=== PATIENT | female | born 1985 | race African-American/Black ===

== ENCOUNTER 2018-03-18 13:24 | Emergency (ER) | payer MEDICAID, OTHER ==
[~2018-03-18] VITALS: Ht 167.6 cm; Wt 74.0 kg
[~2018-03-18 13:24] MED LIST: CIPRO.3%O RIGHT EYE; HYDR-3533 PO
[2018-03-18 13:55] VITALS: BP 130/93; PULSE 78; RESP 18; TEMP 99.5; O2SAT 100
--- NOTE | 2018-03-18 14:01 | PD ---
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 Patient took a home 3 days ago and was positive. Her last menstrual cycle was 2 months ago. Patient has irregular menstrual cycle. She has been nauseous and vomiting as well. Patient is A3. She has a stillborn at 6 months of gestational age with her previous . Vital signs are stable. She has not had an OB yet. She also complains of some foul- smelling vaginal discharge. The pain has been going on for past couple days. The spotting started this morning. The spotting is really light as per the patient. The pain is more to the left side of her pelvis. Pain is nonradiating. PFSH Past Medical History Narrative Medical List of her past medical, surgical, social and family history is reviewed from the nursing note. Cardiovascular Problems: Yes (HEART MUMUR) Immunizations Current: No (PT DOES NOT KNOW) ?: LMP: last period was 2 months ago. + home test Miscarriage: 1 Social History Alcohol Use: No Tobacco Use: No Substance Use: No Allergies-Medications (Allergen,Severity, Reaction): Coded Allergies: No Known Allergies (Verified Adverse Reaction, Unknown, 03/18/18) Comments No known drug allergies. Reported Meds & Prescriptions Reported Meds & Active Scripts Active Macrobid (Nitrofurantoin Monoh/Nitrofur Macro) 100 Mg Cap 100 Mg PO BID 10 Days Ciprofloxacin HCl (Ciprofloxacin HCl (Ophth)) 0.3 % Rupali 2 Drop RIGHT EYE DIRECTED 14 Days Instill 2 drops into affected eye every 15 minutes for the first 6 hours, then 2 drops into the affected eye every 30 minutes for the remainder of the first day. On day 2, instill 2 drops into the affected eye hourly. On days 3-14, instill 2 drops into affected eye every 4 hours. Lortab 5 mg/325 mg (Hydrocodone/Acetaminophen 5 mg/325 mg) 1 Tab 1 Tab PO Q6H PRN Narrative Medication List of her home medications reviewed from the nursing note Review of Systems Except as stated in HPI: all other systems reviewed are Neg Genitourinary: Positive: Pelvic Pain, Vaginal Bleeding Physical Exam Narrative GENERAL: Awake, alert, mild distress SKIN: Focused skin assessment warm/dry. HEAD: Atraumatic. Normocephalic. EYES: Pupils equal and round. No scleral icterus. No injection or drainage. ENT: No nasal bleeding or discharge. Mucous membranes pink and moist. NECK: Trachea midline. No JVD. CARDIOVASCULAR: Regular rate and rhythm. No murmur appreciated. RESPIRATORY: No accessory muscle use. Clear to auscultation. Breath sounds equal bilaterally. GASTROINTESTINAL: Abdomen soft, non-tender, nondistended. Hepatic and splenic margins not palpable. MUSCULOSKELETAL: No obvious deformities. No clubbing. No cyanosis. No edema. NEUROLOGICAL: Awake and alert. No obvious cranial nerve deficits. Motor grossly within normal limits. Normal speech. PSYCHIATRIC: Appropriate mood and affect; insight and judgment normal. Data Data Last Documented VS Orders Orders Beta Hcg (Quant/Titer) (03/18/18 14:09) Complete Blood Count With Diff (03/18/18 14:09) Basic Metabolic Panel (Bmp) (03/18/18 14:09) Urinalysis - C+S If Indicated (03/18/18 14:09) Sodium Chlor 0.9% 1000 Ml Inj (Ns 1000 M (03/18/18 14:09) Ed Urine Pregnancytest Poc (03/18/18 14:09) Metoclopramide Inj (Reglan Inj) (03/18/18 14:15) Type And Screen (03/18/18 14:11) Urine Culture (03/18/18 14:20) Nitrofurantoin Monohyd Macrocr (Macrobid (03/18/18 15:15) Sodium Chlor 0.9% 1000 Ml Inj (Ns 1000 M (03/18/18 15:30) Potassium Chloride (Kcl) (03/18/18 15:45) Ed Poc Ultrasound (03/18/18 ) Gc And Chlamydia Pcr (03/18/18 16:38) Wet Prep Profile (03/18/18 16:38) Ed Discharge Order (03/18/18 18:40) Labs Laboratory Tests Test 03/18/18 14:20 03/18/18 14:23 03/18/18 16:54 Urine Color YELLOW Urine Turbidity HAZY Urine pH 6.0 Urine Specific [place] 1.034 Urine Protein 30 mg/dL Urine Glucose (UA) NEG mg/dL Urine Ketones 40 mg/dL Urine Occult Blood NEG Urine Nitrite NEG Urine Bilirubin NEG Urine Urobilinogen 2.0 MG/DL Urine Leukocyte Esterase LARGE Urine RBC 6 /hpf Urine WBC 32 /hpf Urine Squamous Epithelial Cells 1 /hpf Urine Bacteria RARE /hpf Urine Mucus MANY /lpf Microscopic Urinalysis Comment CULTURE INDICATED White Blood Count 13.5 TH/MM3 Red Blood Count 4.35 MIL/MM3 Hemoglobin 12.4 GM/DL Hematocrit 34.4 % Mean Corpuscular Volume 79.1 FL Mean Corpuscular Hemoglobin 28.6 PG Mean Corpuscular Hemoglobin Concent 36.2 % Red Cell Distribution Width 18.0 % Platelet Count 208 TH/MM3 Mean Platelet Volume 8.9 FL Neutrophils (%) (Auto) 71.0 % Lymphocytes (%) (Auto) 19.0 % Monocytes (%) (Auto) 6.7 % Eosinophils (%) (Auto) 3.0 % Basophils (%) (Auto) 0.3 % Neutrophils # (Auto) 9.6 TH/MM3 Lymphocytes # (Auto) 2.6 TH/MM3 Monocytes # (Auto) 0.9 TH/MM3 Eosinophils # (Auto) 0.4 TH/MM3 Basophils # (Auto) 0.0 TH/MM3 CBC Comment DIFF FINAL Differential Comment Blood Urea Nitrogen 6 MG/DL Creatinine 0.78 MG/DL Random Glucose 75 MG/DL Calcium Level 8.9 MG/DL Sodium Level 136 MEQ/L Potassium Level 3.1 MEQ/L Chloride Level 101 MEQ/L Carbon Dioxide Level 24.7 MEQ/L Anion Gap 10 MEQ/L Estimat Glomerular Filtration Rate 103 ML/MIN Human Chorionic Gonadotropin, Quant 10469 MIU/ML Clue Cells (Wet Prep) NONE SEEN Vaginal Trichomonas (Wet Prep) NONE SEEN Vaginal Yeast (Wet Prep) NONE SEEN Chlamydia trachomatis DNA (PCR) NOT DETECTED Neisseria gonorrhoeae DNA (PCR) NOT DETECTED MDM Medical Decision Making Medical Screen Exam Complete: Yes Emergency Medical Condition: Yes Medical Record Reviewed: Yes Differential Diagnosis Ectopic , threatened, STD, UTI Narrative Course 5:23 PM blood test results are back and within acceptable limit. Her UA was positive for UTI. Patient was given IV fluid bolus and nausea medication. Patient had a bedside ultrasound done by me. Please refer to my procedure note. I had a pelvic done as well and currently waiting for wet mount and GC chlamydia. Case has been signed over to the oncoming ER physician. Procedures Procedure Narrative Emergency Department Pelvic ultrasound was performed with patient consent. The curvilinear probe was used in the transverse and sagittal views within the suprapubic region revealing single, live intrauterine . heart rate was 141 bpm. See this measures 7 weeks and 1 day by crown-rump length. EKG Prior to Arrival: No Diagnosis Primary Impression: First trimester Additional Impressions: Threatened UTI (urinary tract infection) Qualified Codes: N39.0 - Urinary tract infection, site not specified Dehydration Hypokalemia Scripts Nitrofurantoin Monohydrate Macrocrystals (Macrobid) 100 Mg Cap 100 MG PO BID for Infection for 10 Days, #20 CAP 0 Refills Prov: Eunice Pemberton DO 03/18/18 Disposition: 01 DISCHARGE HOME Condition: Stable Maria Eugenia Flores MD Mar 18, 2018 14:01
[2018-03-18] MEDS ORDERED: SODIUM CHLOR 0.9% 1000 ML INJ 1,000 ML IV ONE ×2 (14:09→15:30)
[2018-03-18] MEDS ORDERED: METOCLOPRAMIDE HCL 10 MG/2 ML VIAL IV PUSH ONE (14:15)
[2018-03-18 15:00] LABS: AUTOMATED NEUTROPHIL # 9.6 TH/MM3 (1.8-7.7); BASOPHIL % 0.3 % (0.0-2.0); EOSINOPHIL # 0.4 TH/MM3 (0-0.4); HEMATOCRIT 34.4 % (35.0-46.0); HEMOGLOBIN 12.4 GM/DL (11.6-15.3); LYMPHOCYTE # 2.6 TH/MM3 (1.0-4.8); MEAN CELL VOLUME 79.1 FL (80.0-100.0); MEAN CORPUSCULAR HEMOGLOBIN 28.6 PG (27.0-34.0); MEAN PLATELET VOLUME 8.9 FL (7.0-11.0); MONO % 6.7 % (0.0-8.0); MONOCYTE # 0.9 TH/MM3 (0-0.9); PLATELET COUNT 208 TH/MM3 (150-450); RED BLOOD COUNT 4.35 MIL/MM3 (4.00-5.30); WHITE BLOOD COUNT 13.5 TH/MM3 (4.0-11.0)
[2018-03-18 15:01] LABS: MEAN CORPUSCULAR HGB CONC 36.2 % (32.0-36.0)
[2018-03-18 15:10] LABS: BACTERIA, URINE RARE /hpf; BILIRUBIN, URINE NEG (NEG); BLOOD, URINE NEG (NEG); GLUCOSE,URINE NEG (NEG); KETONE, URINE 40 mg/dL (NEG); MUCUS URINE MANY /lpf (OCC); NITRITE,URINE NEG (NEG); SQUAMOUS EPITHELIAL CELL URINE 1 /hpf (0-5); URINE COLOR YELLOW (YELLW/STRAW); URINE LEUKOCYTE ESTERASE LARGE (NEG)
[2018-03-18] MEDS ORDERED: NITROFURANTOIN MONOHYD MACROCR 100 MG CAP PO ONE (15:15)
[2018-03-18 15:26] LABS: BICARBONATE 24.7 MEQ/L (21.0-32.0); CALCIUM 8.9 MG/DL (8.5-10.1); CREATININE 0.78 MG/DL (0.50-1.00)
[2018-03-18] MEDS ORDERED: POTASSIUM CHLORIDE 20 MEQ CONTROLLED RELEASE TAB PO ONE (15:45)
[2018-03-18 18:32] VITALS: BP 114/70; PULSE 74; RESP 14; O2SAT 99
[2018-03-18] MEDS ORDERED: MACR100C2 PO (18:34)
--- NOTE | 2018-03-18 18:40 | PD ---
Physical Exam Date Seen by Provider: Mar 18, 2018 Data Data Last Documented VS Vital Signs Date Time Temp Pulse Resp B/P (MAP) Pulse Ox O2 Delivery O2 Flow Rate FiO2 03/18/18 18:32 74 14 114/70 (85) 99 Room Air 03/18/18 13:55 99.5 Orders Orders Beta Hcg (Quant/Titer) (03/18/18 14:09) Complete Blood Count With Diff (03/18/18 14:09) Basic Metabolic Panel (Bmp) (03/18/18 14:09) Urinalysis - C+S If Indicated (03/18/18 14:09) Sodium Chlor 0.9% 1000 Ml Inj (Ns 1000 M (03/18/18 14:09) Ed Urine Pregnancytest Poc (03/18/18 14:09) Metoclopramide Inj (Reglan Inj) (03/18/18 14:15) Type And Screen (03/18/18 14:11) Urine Culture (03/18/18 14:20) Nitrofurantoin Monohyd Macrocr (Macrobid (03/18/18 15:15) Sodium Chlor 0.9% 1000 Ml Inj (Ns 1000 M (03/18/18 15:30) Potassium Chloride (Kcl) (03/18/18 15:45) Ed Poc Ultrasound (03/18/18 ) Gc And Chlamydia Pcr (03/18/18 16:38) Wet Prep Profile (03/18/18 16:38) Labs Laboratory Tests Test 03/18/18 14:20 03/18/18 14:23 03/18/18 16:54 Urine Color YELLOW Urine Turbidity HAZY Urine pH 6.0 Urine Specific [place] 1.034 Urine Protein 30 mg/dL Urine Glucose (UA) NEG mg/dL Urine Ketones 40 mg/dL Urine Occult Blood NEG Urine Nitrite NEG Urine Bilirubin NEG Urine Urobilinogen 2.0 MG/DL Urine Leukocyte Esterase LARGE Urine RBC 6 /hpf Urine WBC 32 /hpf Urine Squamous Epithelial Cells 1 /hpf Urine Bacteria RARE /hpf Urine Mucus MANY /lpf Microscopic Urinalysis Comment CULTURE INDICATED White Blood Count 13.5 TH/MM3 Red Blood Count 4.35 MIL/MM3 Hemoglobin 12.4 GM/DL Hematocrit 34.4 % Mean Corpuscular Volume 79.1 FL Mean Corpuscular Hemoglobin 28.6 PG Mean Corpuscular Hemoglobin Concent 36.2 % Red Cell Distribution Width 18.0 % Platelet Count 208 TH/MM3 Mean Platelet Volume 8.9 FL Neutrophils (%) (Auto) 71.0 % Lymphocytes (%) (Auto) 19.0 % Monocytes (%) (Auto) 6.7 % Eosinophils (%) (Auto) 3.0 % Basophils (%) (Auto) 0.3 % Neutrophils # (Auto) 9.6 TH/MM3 Lymphocytes # (Auto) 2.6 TH/MM3 Monocytes # (Auto) 0.9 TH/MM3 Eosinophils # (Auto) 0.4 TH/MM3 Basophils # (Auto) 0.0 TH/MM3 CBC Comment DIFF FINAL Differential Comment Blood Urea Nitrogen 6 MG/DL Creatinine 0.78 MG/DL Random Glucose 75 MG/DL Calcium Level 8.9 MG/DL Sodium Level 136 MEQ/L Potassium Level 3.1 MEQ/L Chloride Level 101 MEQ/L Carbon Dioxide Level 24.7 MEQ/L Anion Gap 10 MEQ/L Estimat Glomerular Filtration Rate 103 ML/MIN Human Chorionic Gonadotropin, Quant 38753 MIU/ML Clue Cells (Wet Prep) NONE SEEN Vaginal Trichomonas (Wet Prep) NONE SEEN Vaginal Yeast (Wet Prep) NONE SEEN MDM Medical Record Reviewed: Yes Supervised Visit with MARCOS: No Interpretation(s) Vital Signs Date Time Temp Pulse Resp B/P (MAP) Pulse Ox O2 Delivery O2 Flow Rate FiO2 03/18/18 18:32 74 14 114/70 (85) 99 Room Air 03/18/18 13:55 99.5 78 18 130/93 (105) 100 Laboratory Tests Test 03/18/18 14:20 03/18/18 14:23 03/18/18 16:54 Urine Color YELLOW (YELLW/STRAW) Urine Turbidity HAZY (CLEAR) Urine pH 6.0 (5.0-8.5) Urine Specific [place] 1.034 (1.002-1.035) Urine Protein 30 mg/dL (NEG-TRACE) Urine Glucose (UA) NEG mg/dL (NEG) Urine Ketones 40 mg/dL (NEG) Urine Occult Blood NEG (NEG) Urine Nitrite NEG (NEG) Urine Bilirubin NEG (NEG) Urine Urobilinogen 2.0 MG/DL (LESS THAN Urine Leukocyte Esterase LARGE (NEG) Urine RBC 6 /hpf (0-3) Urine WBC 32 /hpf (0-5) Urine Squamous Epithelial Cells 1 /hpf (0-5) Urine Bacteria RARE /hpf (NONE) Urine Mucus MANY /lpf (OCC) Microscopic Urinalysis Comment CULTURE INDICATED White Blood Count 13.5 TH/MM3 (4.0-11.0) Red Blood Count 4.35 MIL/MM3 (4.00-5.30) Hemoglobin 12.4 GM/DL (11.6-15.3) Hematocrit 34.4 % (35.0-46.0) Mean Corpuscular Volume 79.1 FL (80.0-100.0) Mean Corpuscular Hemoglobin 28.6 PG (27.0-34.0) Mean Corpuscular Hemoglobin Concent 36.2 % (32.0-36.0) Red Cell Distribution Width 18.0 % (11.6-17.2) Platelet Count 208 TH/MM3 (150-450) Mean Platelet Volume 8.9 FL (7.0-11.0) Neutrophils (%) (Auto) 71.0 % (16.0-70.0) Lymphocytes (%) (Auto) 19.0 % (9.0-44.0) Monocytes (%) (Auto) 6.7 % (0.0-8.0) Eosinophils (%) (Auto) 3.0 % (0.0-4.0) Basophils (%) (Auto) 0.3 % (0.0-2.0) Neutrophils # (Auto) 9.6 TH/MM3 (1.8-7.7) Lymphocytes # (Auto) 2.6 TH/MM3 (1.0-4.8) Monocytes # (Auto) 0.9 TH/MM3 (0-0.9) Eosinophils # (Auto) 0.4 TH/MM3 (0-0.4) Basophils # (Auto) 0.0 TH/MM3 (0-0.2) CBC Comment DIFF FINAL Differential Comment Blood Urea Nitrogen 6 MG/DL (7-18) Creatinine 0.78 MG/DL (0.50-1.00) Random Glucose 75 MG/DL (74-106) Calcium Level 8.9 MG/DL (8.5-10.1) Sodium Level 136 MEQ/L (136-145) Potassium Level 3.1 MEQ/L (3.5-5.1) Chloride Level 101 MEQ/L (98-107) Carbon Dioxide Level 24.7 MEQ/L (21.0-32.0) Anion Gap 10 MEQ/L (5-15) Estimat Glomerular Filtration Rate 103 ML/MIN (>89) Human Chorionic Gonadotropin, Quant 35343 MIU/ML (0-5) Clue Cells (Wet Prep) NONE SEEN (NONE) Vaginal Trichomonas (Wet Prep) NONE SEEN (NONE) Vaginal Yeast (Wet Prep) NONE SEEN (NONE) Narrative Course Patient signed out to me by Dr. Flores at change of shift, patient pending wet prep. Patient is a 32-year-old female who presents the emergency room complaints of pelvic pain with spotting. She reports that she has had a positive test at home, she has not seen an OB yet. Patient had a pelvic exam as well as pelvic ultrasound performed by Dr. Flores. Patient was pending the wet prep, wet prep is negative for Trichomonas, clue cells or yeast. Patient will follow up with gonorrhea/chlamydia cultures. Patient was instructed to follow-up with an AUTOCLAVE OPERATOR, pelvic rest until she is seen and cleared by the car hopper. She will return to ER as needed. Patient also was found to have a UTI as she has large leuk esterase, 32 white blood cells, 40 ketones in her urine. Patient will be started on Macrobid. Urine culture was sent. Signs and symptoms of when to return to ER was reviewed with patient. All labs and studies as well as incidental findings were reviewed with patient. Diagnosis Primary Impression: First trimester Additional Impressions: Threatened UTI (urinary tract infection) Qualified Codes: N39.0 - Urinary tract infection, site not specified Dehydration Hypokalemia Patient Instructions: General Instructions Additional Instruction: Please provide patient with a copy of their lab work and studies at discharge* * Please follow up with your primary care doctor in 2-3 days Return to the ER if symptoms worsen or progress Return to the ER as needed Please follow-up with all cultures from today Pelvic rest until you are seen and cleared by your AUTOCLAVE OPERATOR Med/Other Pt SpecificInfo: Prescription(s) given Scripts Nitrofurantoin Monohydrate Macrocrystals (Macrobid) 100 Mg Cap 100 MG PO BID for Infection for 10 Days, #20 CAP 0 Refills Prov: Eunice Pemberton DO 03/18/18 Disposition: 01 DISCHARGE HOME Condition: Stable Eunice Pemberton DO Mar 18, 2018 18:40
== END 2018-03-18 18:58 | disposition home or self-care (01) ==
LOC: NEPD 13:24
DX: O20.0 Threatened abortion (principal); O23.41 Unspecified infection of urinary tract in pregnancy, first trimester; O99.281 Endocrine, nutritional and metabolic diseases complicating pregnancy, first trimester; E86.0 Dehydration; E87.6 Hypokalemia; Z3A.00 Weeks of gestation of pregnancy not specified
CPT/HCPCS: 80048; 81001; 84702; 84703; 85025; 86850; 86900; 86901; 87086; 87210; 87491; 87591; 96361; 96374; 99284; J2765; J7030